=== PATIENT | male | born 1970 | race Caucasian/White ===

== ENCOUNTER → 2024-03-25 12:45 | Outpatient (REF) | payer OTHER, SELFPAY | LOC: RAD 12:45 | PROVIDERS: ATTENDING PHYSICIAN Nurse Practitioner Family; REFERRING PHYSICIAN Orthopaedic Surgery | DX: M25.562 Pain in left knee (principal) | CPT/HCPCS: 73564 ==

== ENCOUNTER → 2025-01-06 16:19 | Outpatient (REF) | payer OTHER, SELFPAY | LOC: RAD 16:19 | PROVIDERS: ATTENDING PHYSICIAN Family Medicine | DX: M54.16 Radiculopathy, lumbar region (principal); M51.362 Other intervertebral disc degeneration, lumbar region with discogenic back pain and lower extremity pain | CPT/HCPCS: 72110 ==